=== PATIENT | male | born 1950 | race Caucasian/White ===

== ENCOUNTER → 2021-09-15 | Outpatient (CLI) | payer MEDICARE, OTHER ==
[~2021-09-15] MED LIST: FLOMAX0.4 MG PO; HYDROCODON-ACE1 EAC6 PO; LIPITOR80 MG PO; LISINOPRIL5 MG PO; LOW DOSE ASPIRI81 MG PO; OMEPRAZOLE40 MG PO; XANAX 0.25 MG0.25 MG PO; ZYRTEC10 MG PO
[2021-09-15 11:14] LABS: BUN/CREATININE RATIO 20 (0-10)
== END ==
LOC: OPSV2 10:00
PROVIDERS: Orthopaedic Surgery
DX: Z01.818 Encounter for other preprocedural examination (principal); G56.02 Carpal tunnel syndrome, left upper limb
CPT/HCPCS: 71046; 80048; 93005

== ENCOUNTER → 2021-09-20 | Day surgery (SDC) | payer MEDICARE, OTHER ==
[~2021-09-20] VITALS: Ht 172.7 cm; Wt 99.3 kg
[~2021-09-20] MED LIST changes: +TYLENOL EXTRA500 MG PO
== END | disposition home or self-care (01) ==
LOC: OR 05:51
DX: G56.03 Carpal tunnel syndrome, bilateral upper limbs (principal); I10 Essential (primary) hypertension; E78.5 Hyperlipidemia, unspecified; J44.9 Chronic obstructive pulmonary disease, unspecified; I25.10 Atherosclerotic heart disease of native coronary artery without angina pectoris; F41.9 Anxiety disorder, unspecified; F11.20 Opioid dependence, uncomplicated; Z98.890 Other specified postprocedural states
CPT/HCPCS: J0690; J1100; J2001; J2250; J2405; J2704; J3010